=== PATIENT | female | born 1945 | race Caucasian/White ===

== ENCOUNTER 2021-06-07 01:03 | Emergency (ER) | payer MEDICARE ==
[~2021-06-07] VITALS: Ht 162.6 cm; Wt 52.0 kg
[2021-06-07 01:14] VITALS: BP 170/92
== END 2021-06-07 01:25 ==
LOC: ER 01:04
DX: Z13.89 Encounter for screening for other disorder (principal); J44.9 Chronic obstructive pulmonary disease, unspecified; G89.29 Other chronic pain; Z72.89 Other problems related to lifestyle; V87.7XXA Person injured in collision between other specified motor vehicles (traffic), initial encounter; Y93.89 Activity, other specified; Y92.89 Other specified places as the place of occurrence of the external cause; Y99.8 Other external cause status
CPT/HCPCS: 99283

== ENCOUNTER 2021-11-18 16:03 | Emergency (ER) | payer MEDICARE ==
[~2021-11-18] VITALS: Ht 162.6 cm; Wt 56.8 kg
[2021-11-18 16:44] LABS: BASOPHILS % (AUTO) 0.2 % (0-1); EOSINOPHILS # (AUTO) 0.1 X10'3 (0-0.9); EOSINOPHILS % (AUTO) 0.6 % (0-6); HEMATOCRIT 45.5 % (35.0-45.0); HEMOGLOBIN 15.4 g/dl (12.0-16.0); LYMPHOCYTES # (AUTO) 1.4 X10'3 (1.1-4.8); LYMPHOCYTES % (AUTO) 8.9 % (21-51); MEAN CORPUSCULAR HEMOGLOBIN 28.9 PG (27.0-31.0); MEAN CORPUSCULAR HGB CONC 33.9 g/dL (33.0-36.5); MEAN CORPUSCULAR VOLUME 85.3 FL (78-98); MEAN PLATELET VOLUME 7.9 FL (7.4-10.4); MONOCYTES # (AUTO) 1.5 X10'3 (0-0.9); MONOCYTES % (AUTO) 9.6 % (2-12); NEUTROPHILS # (AUTO) 12.9 X10'3 (1.8-7.7); NEUTROPHILS % (AUTO) 80.7 % (42-75); PLATELET COUNT 325 X10'3 (140-440); RED BLOOD COUNT 5.33 X10'6 (4.20-5.60); RED CELL DISTRIBUTION WIDTH 13.4 % (11.5-14.5)
[2021-11-18 16:57] LABS: ALANINE AMINOTRANSFERASE 36 U/L (12-78); ALBUMIN 3.6 G/DL (3.4-5.0); ALBUMIN/GLOBULIN RATIO 0.7 (1.1-1.5); ALKALINE PHOSPHATASE 118 IU/L (46-116); ANION GAP 14 (8-16); ASPARTATE AMINO TRANSFERASE 34 U/L (10-37); BILIRUBIN,TOTAL 0.9 MG/DL (0.1-1.0); BLOOD UREA NITROGEN 21 MG/DL (7-18); BUN/CREATININE RATIO 18.4 (6.6-38.0); CALCIUM 9.8 MG/DL (8.5-10.1); CHLORIDE 98 MMOL/L (99-107); CREATININE 1.14 MG/DL (0.40-0.90); GLUCOSE 139 MG/DL (70-104); POTASSIUM 3.7 MMOL/L (3.5-5.1); SODIUM 135 MMOL/L (135-145); TOTAL CARBON DIOXIDE 23.2 MMOL/L (24-32); TOTAL PROTEIN 8.7 G/DL (6.4-8.2); eGFR 46 ML/MIN
[2021-11-18] MEDS ORDERED: azithromycin 250mg tablet PO ONE (19:15)
[2021-11-18] MEDS ORDERED: amox tr/potassium clavulanate 875/125mg TAB PO ONE (19:15)
[2021-11-18] MEDS ORDERED: AMOX-117 PO (20:07)
[2021-11-18] MEDS ORDERED: PRED20TA PO (20:07)
[2021-11-18] MEDS ORDERED: AZIT-83 PO (20:07)
[2021-11-18] MEDS ORDERED: GUAI120L55 PO (20:12)
[2021-11-18] MEDS ORDERED: ipratropium/albuterol 3ml nebule NEB ONE (20:15)
[2021-11-18 20:39] VITALS: BP 142/66
== END 2021-11-18 20:42 | disposition home or self-care (01) ==
LOC: ER 16:03
DX: J18.9 Pneumonia, unspecified organism (principal); R06.02 Shortness of breath; R05.9 Cough, unspecified; J44.9 Chronic obstructive pulmonary disease, unspecified; G89.29 Other chronic pain; Z72.89 Other problems related to lifestyle; Z79.2 Long term (current) use of antibiotics; Z79.899 Other long term (current) drug therapy
CPT/HCPCS: 71045; 80053; 83880; 84484; 85025; 93005; 94640; 94760; 99285

== ENCOUNTER 2025-01-08 13:58 | Emergency (ER) | payer MEDICARE ==
[~2025-01-08] VITALS: Ht 162.6 cm; Wt 49.6 kg
[~2025-01-08 13:58] MED LIST: GUAI120L55 PO
[2025-01-08 14:03] VITALS: TEMP 97.4
--- NOTE | 2025-01-08 14:12 | Physician Documentation ---
History of Present Illness Stated Complaint: COPD COMPLICATIONS OK to notify your PCP?: Yes Primary Medical Doctor: [facility] Source: patient, RN/MD, RN notes reviewed, old records Mode of Arrival: POV Exam Limitations: no limitations HPI Patient is a 79-year-old female that presents to the emergency department with a COPD exacerbation. Reports that she is currently out of her medications at home and has been experiencing increased shortness of breath wheezing inability to s leep at night secondary to symptoms. Patient reports she attempted to pick and shovel man her medication but it was very expensive and she was unable to. Patient states for The last Two days she has been having difficulty breathing. She usually coughs up lots of phlegm and has bronchitis but this time she is not. She is short of breath need some oxygen. She is also out of her medications as mentioned above. The patient is very anxious. She is complaining about the euceda of medication and was wondering if samples are available. She denies any chest pain. Medication Reconciliation Allergies: Coded Allergies: No Known Allergies (Unverified , 01/08/25) Scheduled Azithromycin (Zithromax), 1 TAB PO DAILY Beclomethasone Dipropionate (Qvar 40 MCG INHALER), 2 PUFFS INH BID Prednisone* (Prednisone*), 2 TAB PO DAILY Scheduled PRN Guaifenesin/Codeine Phosphate (Codeine-Guaifen 10-100 mg/5 ml), 10-May ML PO Q4HPRN PRN for cough and congestion albuterol inhaler (Pro-Air Inhaler), 2 PUFFS INH Q4HPRN PRN for wheezing Past Medical History Past Medical History: COPD, Chronic Back Pain Past Surgical History: noncontributory Alcohol Use: Occasionally Lives In: Home Review of Systems All Other Systems at this time: Reviewed and Negative Physical Exam Vital Signs: RN Vital Signs have been reviewed: Yes Physical Exam General: The patient is well developed, well nourished, ill appearing and is in moderate acute distress. Actively coughing anxious, leaning forward difficulty breathing Skin: [place], warm and dry with no rashes. HEENT: Head was normocephalic and atraumatic. Eyes - pupils equal, round, reactive to light and accommodation. Extraocular movements were intact. Conjun ctivae were nonicteric. The mouth and oropharynx were clear with moist mucous membranes. There were no pharyngeal exudates Neck: Supple and nontender. There was no jugular venous distention, lymphadenopathy, thyromegaly or masses. Chest: Short shallow breath sounds poor inspiratory effort prolonged expiratory phase. Accessory muscle use diaphragmatic breathing. Heart: Rate regular rapid and rhythmic. S1, S2. No murmurs. Palpation of the chest wall was normal. No rubs or thrills. Abdomen: Soft, nontender and nondistended. Positive bowel sounds. No guarding or rebound. No hepatosplenomegaly or palpable masses. Extremities: No cyanosis, clubbing or edema. The patient moves all extremities. Pulses were equal and symmetric. Neurologic: Motor sensory grossly intact Psychologic: The patient was oriented to person, place and time. The patient demonstrated appropriate judgement and insight. Anxious Progress Results/Orders Reviewed/noted all lab results: Yes Re-Evaluation Re-Evaluation : Re-Evaluation: Improved Progress Patient was seen and examined. Patient was given reassurance. The patient was given a continuous neb with Heliox. Patient received prednisone 60 mg. Patient was refusing an IV line. Patient then received albuterol and duo nebs with continued 1 hour treatment as well as a duo neb also with Heliox. Patient is breathing much better but continues to have coughing spasms and with re- evaluation continues to have expiratory wheezing. Patient was re-evaluated 6:30 p.m. patient is still trying to leave the ER. Patient had security closer windows in her car. I have prescriptions for her trying to have her stay as long as possible for additional treatment. Unfortunately patient most likely would benefit from admission but I can not keep her in the ER just to finish her treatments. She is refusing admission. Patient has prescriptions as well and will ultimately be discharged when the patient finally feels better. She is now moving air during re-evaluation. Continuous color television console monitor interpretation shows low oxygenation at 91% on 2 L. Abnormal, my interpretation. Patient's oxygenation is now 95% on room air. Improved. Normal my interpretation. nurse monitoring interpretation shows normal sinus rhythm heart rate 70s, no ectopy, normal, my interpretation. EKG/XRAY/CT/US/VASC/MRI Chest X-Ray : Additional Comments CHEST RADIOGRAPH Indication: copd Technique: Frontal and lateral view of the chest was obtained Comparison: CHEST,SINGLE VIEW on DOS: 11/18/21 FINDINGS: Lines and Tubes: None Lungs: Increased interstitial prominence Pleura: No effusion. No pneumothorax. Cardiomediastinal contours: Unremarkable Bones: Unremarkable IMPRESSION: Increased interstital prominence. This may represent pulmonary vascular congestion and/or viral pneumonia. Clinical correlation advised. Electronically Signed by:BEN MAO MD Medical Decision Making Additional info obtained from: old records Differential Dx:Considerations: Include: AAA, -Complete, - Incomplete, -Inevitable, -Missed, -Threatened, Abruptio placentae, Angina/UT, Aortic dissection, Appendicitis, Bowel obstruction, Cholangitis, Cholelithasis, Constipation, Diverticular disease, Esophageal rupture, Esophagitis, Gastritis/PUD, Gastroenteritis, GI hemorrhage, Hernia, Hepatitis, Inflammatory BD, Ischemic bowel, Ovarian cyst/torsion, Pancreatitis, PID, Porphyria, Trauma, intraabdominal, Urinary obstruction, Urinary tract infection, Urolithiasis, Other Departure Disposition: HOME / SELF CARE / HOMELESS Impression: Primary Impression: Acute exacerbation of chronic obstructive airways disease Additional Impression: Acute respiratory distress Condition: Fair Discharge Instructions: Chronic Obstructive Pulmonary Disease Exacerbation Referrals: NO PRIMARY CARE PROVIDER (PCP) Prescriptions Azithromycin (Zithromax) 250 Mg Tablet 1 TAB PO DAILY, #4 TAB Prov: SABAS EVERETT MD 01/08/25 Prednisone* (Prednisone*) 20 Mg Tablet 2 TAB PO DAILY for 7 Days, #15 TAB Prov: SABAS EVERETT MD 01/08/25 Beclomethasone Dipropionate (Qvar 40 MCG INHALER) 40 Mcg/Actuation Inhaler 2 PUFFS INH BID, #8.7 GM 5 Refills Prov: SABAS EVERETT MD 01/08/25 albuterol inhaler (Pro-Air Inhaler) 8.5 Gm Inhaler 2 PUFFS INH Q4HPRN PRN for wheezing for 30 Days, #18 GM Prov: SABAS EVERETT MD 01/08/25 Guaifenesin/Codeine Phosphate (Codeine-Guaifen 10-100 mg/5 ml) 10 Mg-100 Mg/5 Ml Liquid 10-May ML PO Q4HPRN PRN for cough and congestion MDD 60 Milliliter(s) for 4 Days, #240 ML 0 Refills Prov: SABAS EVERETT MD 01/08/25 Education Educated: Patient Educated regarding: diagnosis, need for follow up Critical Care Note Total Time (mins): 33 Critical Care Note The very real possibility of a deterioration of this patient's condition required the highest level of my preparedness for sudden, emergent intervention. I provided critical care services, which included medication orders, frequent reevaluations of the patient's condition and response to treatment, ordering and reviewing test results, and discussing the case with various consultants. Excludes time spent performing separately billable procedures. The critical care time associated with the care of the patient was. 33 minutes Signature Scribe Signature: . Attestation: The note accurately reflects work and decisions made by me.Sabas Everett MD 12/24 11/17 18:40 LAMINE CASTRO Jan 08, 2025 14:12 SABAS EVERETT MD Jan 08, 2025 18:15
[2025-01-08 16:11] LABS: MEAN PLATELET VOLUME 7.8 FL (7.4-10.4); RED CELL DISTRIBUTION WIDTH 13.9 % (11.5-14.5)
--- NOTE | 2025-01-08 16:19 | RADIOLOGY REPORT ---
CHEST RADIOGRAPH Indication: copd Technique: Frontal and lateral view of the chest was obtained Comparison: CHEST,SINGLE VIEW on DOS: 11/18/21 FINDINGS: Lines and Tubes: None Lungs: Increased interstitial prominence Pleura: No effusion. No pneumothorax. Cardiomediastinal contours: Unremarkable Bones: Unremarkable IMPRESSION: Increased interstital prominence. This may represent pulmonary vascular congestion and/or viral pneum onia. Clinical correlation advised.
[2025-01-08 16:34] LABS: CREATININE 0.75 MG/DL (0.40-0.90); PRO BRAIN NATRIURETIC PEPTIDE 339 PG/ML (0-450); TOTAL CARBON DIOXIDE 30.6 MMOL/L (24-32); eCRCL 48 ML/MIN; eGFR 75 ML/MIN
[2025-01-08 17:42] VITALS: PULSE 104; RESP 20; O2SAT 92
[2025-01-08] MEDS: albuterol 2.5 MG/3 ML nebule NEB ONE (17:42)
[2025-01-08] MEDS ORDERED: codeine/proMETHazine 5ml UD syrup PO ONE (17:45)
[2025-01-08] MEDS ORDERED: GUAI120L55 PO (17:47)
[2025-01-08] MEDS ORDERED: BECL7.3A INH (17:51)
[2025-01-08] MEDS ORDERED: PRED20TA PO (17:51)
[2025-01-08] MEDS ORDERED: ALBU8HFA INH (17:51)
[2025-01-08] MEDS ORDERED: AZIT-164 PO (17:51)
[2025-01-08 17:57] VITALS: PULSE 83; RESP 20; O2SAT 95
[2025-01-08 17:59] VITALS: PULSE 88; RESP 20; O2SAT 98
[2025-01-08] MEDS: albuterol 2.5 MG/3 ML nebule CONTNEB PRN (17:59)
[2025-01-08] MEDS ORDERED: proMETHazine 6.25 mg/5 ml UD oral syrup PO ONE (18:20)
[2025-01-08] MEDS: proMETHazine 6.25 mg/5 ml UD oral syrup PO ONE (18:37)
[2025-01-08 18:51] VITALS: BP 169/78; PULSE 84; RESP 20; O2SAT 98
--- NOTE | 2025-01-09 13:54 | ELECTROCARDIOGRAPH REPORT ---
[facility] Test Date: 2025-01-08 Test Time: 16:55:22 Pat Name: ALISON CASE Department: EMERGENCY ROOM Room: Gender: F Welder/Installer: : 1945 Requested By: DEPARTMENT EMERGENCY Order Number: [id number] Reading MD: Dr. Sabas Everett Measurements Intervals [place] Rate: 69 P: 83 MS: 124 QRS: 76 QRSD: 82 T: 156 QT: 431 QTc: 462 Interpretive Statements Age not entered, assumed to be 50 years old for purpose of ECG interpretation Sinus rhythm Right atrial enlargement Probable LVH with secondary repol abnrm Abnormal T, probable ischemia, anterior leads Baseline wander in lead(s) V1 Electronically Signed On 01-10-2025 6:16:[address] Sabas Everett Please click the below link to view image of tracing.
== END 2025-01-08 18:53 | disposition home or self-care (01) ==
LOC: ER 13:58
DX: J44.1 Chronic obstructive pulmonary disease with (acute) exacerbation (principal); J96.00 Acute respiratory failure, unspecified whether with hypoxia or hypercapnia
CPT/HCPCS: 36415; 71046; 80048; 83880; 85025; 93005; 94644; 99291; A4615; J7512; 94640; 94760